=== PATIENT | female | born 1995 | race Caucasian/White ===

== ENCOUNTER 2017-05-12 19:08 | Emergency (ER) | payer OTHER ==
[~2017-05-12] VITALS: Ht 157.5 cm; Wt 54.4 kg
[2017-05-12 20:16] VITALS: BP 115/69
--- NOTE | 2017-05-12 20:20 | NUR ---
TO LOBBY, A/W BED, MANUELA, VSQasim, ERMRosina NOTED
--- NOTE | 2017-05-12 20:32 | NUR ---
TO ER BED 01
--- NOTE | 2017-05-12 20:41 | NUR ---
21/F c/o RLQ pain x2 weeks on and off. Pt describes the pain as pressure, intermittent. Pt denies N/V/D. AOX4, ambulatory with steady gait. Abdomen soft, non tender with active bowel sounds x4 quadrants. Denies medical hx. VSS. Family at bedside. Denies medical hx
--- NOTE | 2017-05-12 21:07 | NUR ---
Patient being evaluated by Dr. Soriano at bedside.
[2017-05-12] MEDS ORDERED: MORPHINE SULFATE 2 MG/ML SYR IVP ONE (21:15)
[2017-05-12] MEDS ORDERED: NACL 0.9% 1,000 ML IV ONE (21:15)
[2017-05-12] MEDS ORDERED: ONDANSETRON 4 MG/2 ML VIAL IVP ONE (21:15)
[2017-05-12] MEDS ORDERED: MORPHINE SULFATE 5 MG/ML VIAL ONE (21:31)
[2017-05-12 21:32] LABS: HEMATOCRIT 42.8 % (36-48); HEMOGLOBIN 14.4 g/dL (12.0-16.0); MEAN CORPUSCULAR HEMOGLOBIN 31 pg (27-31); MEAN CORPUSCULAR HGB CONC 34 g/dL (33-37); MEAN CORPUSCULAR VOLUME 91 fL (80-94); PLATELET COUNT (AUTO) 221 K/uL (140-450); RED BLOOD CELL COUNT(AUTO) 4.69 MIL/uL (4.20-5.40); RED CELL DISTRIBUTION WIDTH 11.5 % (11.6-13.7); WHITE BLOOD COUNT (AUTO) 9.9 K/uL (4.8-10.8)
--- NOTE | 2017-05-12 21:38 | NUR ---
Ultrasound at bedside.
[2017-05-12 21:45] LABS: APPEARANCE,URINE CLEAR (CLEAR); BILIRUBIN,URINE NEGATIVE (NEGATIVE); BLOOD, URINE TRACE-L (NEGATIVE); COLOR,URINE YELLOW (YELLOW); LEUKOCYTE ESTERASE ,URINE NEGATIVE (NEGATIVE); NITRITE, URINE NEGATIVE (NEGATIVE); UGLUCOSE NEGATIVE (NEGATIVE)
[2017-05-12 21:45] LABS: ANION GAP 11.6 (8-16); CARBON DIOXIDE 26.1 mmol/L (21-32); CREATININE 0.5 mg/dL (0.6-1.3); POTASSIUM 3.7 mmol/L (3.5-5.1)
[2017-05-12 21:50] LABS: ALBUMIN 3.9 g/dL (3.4-5.0); TOTAL BILIRUBIN 0.2 mg/dL (0.0-1.0)
[2017-05-12 21:55] LABS: RBC,URINE 0-5 (RARE) /HPF (0-5); WBC,URINE 0-5 (RARE) /HPF (0-5)
--- NOTE | 2017-05-12 23:14 | NUR ---
Pt taken to CT via w/c.
--- NOTE | 2017-05-13 00:29 | NUR ---
Patient appears to be resting comfortably in bed. VSS.
[2017-05-13 00:48] VITALS: BP 108/65
--- NOTE | 2017-05-13 00:48 | NUR ---
Patient discharged with v/s stable. Written and verbal after care instructions given and explained. Patient alert, oriented and verbalized understanding of instructions. Ambulatory with steady gait. All questions addressed prior to discharge. ID band removed. Patient advised to follow up with PMD and OBGYN. Rx of Motrin 600mg and Mcdonald 5mg-325mg given. Patient educated on indication of medication including possible reaction and side effects. Opportunity to ask questions provided and answered.
--- NOTE | 2017-05-13 00:48 | NUR ---
IV removed, catheter intact and site benign. Applied folded 4x4 gauze and tape to stop bleeding.
[2017-05-17 08:14] LABS: CHLAMYDIA TRACHOMATIS AMP DNA Negative (Negative)
== END 2017-05-13 00:48 | disposition home or self-care (01) ==
LOC: MED 19:08
DX: N83.201 Unspecified ovarian cyst, right side (principal); R10.31 Right lower quadrant pain
CPT/HCPCS: 36415; 74177; 76856; 80053; 81001; 81025; 83690; 85025; 87210; 87491; 96361; 96374; 96375; 99285; J2270; J2405; J7030; Q0092; Q9967